=== PATIENT | male | born 1995 | race Caucasian/White ===

== ENCOUNTER 2023-06-06 19:14 | Emergency (ER) | payer MEDICAID, MEDICARE | END 2023-06-06 19:43 | disposition home or self-care (01) | LOC: VM.ED 19:14 | DX: F41.1 Generalized anxiety disorder (principal); F43.0 Acute stress reaction; Z88.1 Allergy status to other antibiotic agents; Z79.899 Other long term (current) drug therapy | CPT/HCPCS: 99284 ==

== ENCOUNTER 2024-10-29 09:50 | Day surgery (SDC) | payer MEDICAID, MEDICARE ==
[2024-10-29] MEDS ORDERED: fentaNYL 100 MCG/2 ML SDV ONE (10:32)
[2024-10-29] MEDS ORDERED: Propofol 200 MG/20 ML SDV ONE ×2 (10:32→10:54)
[2024-10-29] MEDS: Citric Acid/Sodium Citrate Solution 30 ML Cup PO ONE (11:45)
[2024-10-29] MEDS: Lactated Ringers 1,000 ML IV SCH (11:46)
== END 2024-10-29 13:22 | disposition home or self-care (01) ==
LOC: VM.SDS 09:50
PROVIDERS: ATTEND Surgery
DX: R10.32 Left lower quadrant pain (principal); K21.9 Gastro-esophageal reflux disease without esophagitis; F31.81 Bipolar II disorder; E66.812 Obesity, class 2; Z79.899 Other long term (current) drug therapy; Z88.1 Allergy status to other antibiotic agents
CPT/HCPCS: 00731; A9270-GY; J2704; J3010; J7120